=== PATIENT | female | born 1985 | race African-American/Black ===

== ENCOUNTER 2019-07-29 15:34 | Inpatient (IN) | payer BC ==
[~2019-07-29] VITALS: Ht 162.6 cm; Wt 78.0 kg
[2019-07-29] MEDS ORDERED: DEXT 5%/LR + PITOCIN 20UNITS/L 1,000 ML IV SCH ×2 (16:37→20:26)
[2019-07-29] MEDS ORDERED: METHYLERGONOVINE MALEATE 0.2 MG/ML IM PRN (16:45)
[2019-07-29] MEDS ORDERED: LIDOCAINE HCL 1% 20ML VIAL (Pyxis) INJ INFIL SCH (16:45)
[2019-07-29] MEDS ORDERED: BUTORPHANOL TARTRATE 2 MG/ML VIAL IV PRN (16:45)
[2019-07-29] MEDS ORDERED: CARBOPROST TROMETHAMINE 250 MCG/ML AMPUL IM PRN (16:45)
[2019-07-29] MEDS ORDERED: NALOXONE HCL 0.4 MG/ML 1ML VIAL IM PRN (16:45)
[2019-07-29] MEDS ORDERED: PENICILLIN G POTASSIUM 5 MMU in DEXT 5% WATER 100 ML IV SCH (17:00)
[2019-07-29] MEDS: LACTATED RINGERS 1,000 ML IV SCH ×2 (17:11→18:49)
[2019-07-29 17:20] LABS: CLARITY URINE CLEAR (CLEAR); COLOR URINE YELLOW (YELLOW); KETONES URINE TRACE (NEGATIVE); LEUKOCYTE ESTERASE URINE NEGATIVE (NEGATIVE); NITRITE URINE NEGATIVE (NEGATIVE); OCCULT BLOOD URINE NEGATIVE (NEGATIVE); PH URINE 6.5 (4.5-8.0); PROTEIN URINE NEGATIVE (NEGATIVE); SPECIFIC GRAVITY URINE 1.012 (1.005-1.030)
[2019-07-29 17:29] LABS: BASOPHILS % 0.8 % (0.0-2.0); HEMATOCRIT. 31.2 % (36.0-48.0); HEMOGLOBIN. 10.3 g/dL (12.0-16.0); LYMPHOCYTES % 37.7 % (20.0-50.0); MEAN CORPUSCULAR HEMOGLOBIN 26.6 pg (28.0-32.0); MEAN CORPUSCULAR VOLUME 80.9 fL (81.0-99.0); MEAN PLATELET VOLUME 9.1 fl (7.4-10.4); MONOCYTES % 9.3 % (2.0-8.0); NEUTROPHILS % 51.2 % (40.0-76.0); PLATELET 298 x1000/uL (130-400); RED BLOOD CELL COUNT 3.85 mill/uL (4.2-5.4); RED CELL DISTRIBUTION WIDTH 14.8 % (11.6-14.6)
[2019-07-29 17:33] LABS: *AMPHETAMINES SCREEN URINE NEGATIVE (NEGATIVE); *BARBITURATES SCREEN URINE NEGATIVE (NEGATIVE); *BENZODIAZEPINES SCREEN URINE NEGATIVE (NEGATIVE); *COCAINE SCREEN URINE NEGATIVE (NEGATIVE); METHADONE URINE SCREEN NEGATIVE (NEGATIVE)
[2019-07-29 17:34] LABS: CANNABINOID URINE SCREEN NEGATIVE (NEGATIVE); OPIATES URINE SCREEN NEGATIVE (NEGATIVE); PHENCYCLIDINE URINE SCREEN NEGATIVE (NEGATIVE)
[2019-07-29 17:34] LABS: INR 0.9; PARTIAL THROMBOPLASTIN TIME 25.8 sec (23.4-31.0); PROTHROMBIN TIME 9.3 sec (9.6-11.0)
[2019-07-29 18:03] LABS: HEPATITIS B SURFACE ANTIGEN NEGATIVE
[2019-07-29] MEDS ORDERED: MORPHINE SULFATE/PF 1MG/ML 10ML AMP ONE (18:06)
[2019-07-29] MEDS ORDERED: OXYTOCIN 10 UNITS/ML 1ML ONE ×3 (18:08→20:01)
[2019-07-29] MEDS ORDERED: SODIUM CHLORIDE 0.9% 10ML VIAL ONE ×3 (18:08→18:31)
[2019-07-29] MEDS ORDERED: CEFAZOLIN SODIUM 1000MG/VIAL ONE ×2 (18:08→18:32)
[2019-07-29] MEDS ORDERED: METOCLOPRAMIDE HCL 10MG/2ML VIAL ONE (18:12)
[2019-07-29] MEDS ORDERED: PHENYLEPHRINE HCL 10 MG/ML 1ML (IV VIAL) IV ONE (18:12)
[2019-07-29] MEDS ORDERED: ONDANSETRON HCL 4MG/2ML INJ ONE ×2 (18:12→18:33)
[2019-07-29] MEDS ORDERED: DEXAMETHASONE 4MG/ML 1ML VIAL ONE ×2 (18:12→18:32)
[2019-07-29] MEDS ORDERED: EPHEDRINE SULFATE 50MG/ML VIAL ONE (18:31)
[2019-07-29] MEDS ORDERED: HYDROCODONE/ACETAMINOPHEN 5/325MG TABLET PO PRN (20:30)
[2019-07-29] MEDS ORDERED: LANOLIN OINT 7GM TUBE TOP PRN (20:30)
[2019-07-29] MEDS ORDERED: DIPHENHYDRAMINE 25MG CAPSULE PO PRN (20:30)
[2019-07-29] MEDS ORDERED: IBUPROFEN 400MG TABLET PO PRN (20:30)
[2019-07-29] MEDS ORDERED: ONDANSETRON HCL 4MG/2ML INJ IV PRN (20:30)
[2019-07-29] MEDS ORDERED: RHO(D) IMMUNE GLOBULIN 300 MCG/SYR IM PRN (20:30)
[2019-07-29] MEDS ORDERED: DOCUSATE SODIUM 100MG CAPSULE PO SCH (21:00)
[2019-07-29] MEDS ORDERED: PENICILLIN G POTASSIUM 2.5 MMU in DEXTROSE 5% WATER 50 ML IV SCH (21:00)
[2019-07-29 23:25] VITALS: BP 117/76
[2019-07-30] VITALS: BP 114/69
[2019-07-30 00:30] VITALS: BP 122/69
[2019-07-30 04:15] VITALS: BP 121/77
[2019-07-30] MEDS ORDERED: METOCLOPRAMIDE HCL 10MG/2ML VIAL IV PRN (05:00)
[2019-07-30] MEDS ORDERED: KETOROLAC 30MG/ML VIAL IM SCH (05:00)
[2019-07-30] MEDS ORDERED: NALOXONE HCL 0.4 MG/ML 1ML VIAL IV PRN (05:00)
[2019-07-30] MEDS ORDERED: DIPHENHYDRAMINE 50MG/ML VIAL IV PRN (05:15)
[2019-07-30 06:24] LABS: HEMATOCRIT. 24.7 % (36.0-48.0); HEMOGLOBIN. 8.2 g/dL (12.0-16.0); MEAN CORPUSCULAR HEMOGLOBIN 26.7 pg (28.0-32.0); MEAN CORPUSCULAR VOLUME 80.9 fL (81.0-99.0); MEAN PLATELET VOLUME 8.9 fl (7.4-10.4); PLATELET 238 x1000/uL (130-400); RED BLOOD CELL COUNT 3.05 mill/uL (4.2-5.4); RED CELL DISTRIBUTION WIDTH 14.5 % (11.6-14.6)
[2019-07-30 08:00] VITALS: BP 103/59
[2019-07-30] MEDS: PRENATAL VIT/FE FUMARATE/FA TABLET PO SCH (08:14)
[2019-07-30] MEDS ORDERED: BUTORPHANOL TARTRATE 2 MG/ML VIAL IV PRN (08:30)
[2019-07-30] MEDS: LACTATED RINGERS 1,000 ML IV SCH (08:37)
[2019-07-30 13:46] LABS: PLATELET ESTIMATE NORMAL
[2019-07-30 14:00] VITALS: BP 119/71
[2019-07-30 20:00] VITALS: BP 100/70
[2019-07-30] MEDS: ACETAMINOPHEN WITH CODEINE 300/30MG TABLET PO PRN (23:32)
[2019-07-31] VITALS: BP 102/70
[2019-07-31 04:00] VITALS: BP 105/72
[2019-07-31 08:00] VITALS: BP 104/56
[2019-07-31] MEDS: PRENATAL VIT/FE FUMARATE/FA TABLET PO SCH (08:33)
[2019-07-31] MEDS: ACETAMINOPHEN WITH CODEINE 300/30MG TABLET PO PRN ×2 (08:34→12:49)
[2019-07-31] MEDS ORDERED: IBUP-2028 PO (13:01)
[2019-07-31 15:04] VITALS: BP 108/56
== END 2019-07-31 18:30 | disposition home or self-care (01) | DRG 785 ==
LOC: 8 EST LDRP 15:34 → OBSVTOIN 15:34 → 8EST 23:12
PROVIDERS: ADMIT Obstetrics & Gynecology; ATTEND Obstetrics & Gynecology
PROC: 10D00Z1 Extraction of Products of Conception, Low, Open Approach (ICD-10-PCS; principal; 2019-07-29)
PROC: 0UB70ZZ Excision of Bilateral Fallopian Tubes, Open Approach (ICD-10-PCS; 2019-07-29)
DX: O30.003 Twin pregnancy, unspecified number of placenta and unspecified number of amniotic sacs, third trimester (principal); O32.1XX1 Maternal care for breech presentation, fetus 1; O99.824 Streptococcus B carrier state complicating childbirth; O34.83 Maternal care for other abnormalities of pelvic organs, third trimester; N83.8 Other noninflammatory disorders of ovary, fallopian tube and broad ligament; D25.9 Leiomyoma of uterus, unspecified; O34.13 Maternal care for benign tumor of corpus uteri, third trimester; O99.02 Anemia complicating childbirth; O36.8130 Decreased fetal movements, third trimester, not applicable or unspecified; Z37.2 Twins, both liveborn; Z3A.38 38 weeks gestation of pregnancy; Z88.2 Allergy status to sulfonamides
CPT/HCPCS: 36415; 76802; 76815; 80305; 81003; 85025; 86592; 86703; 86762; 86850; 86900; 87340; 88304; 88307; 99281; J0690; J1100; J1200; J1885; J2274; J2370; J2405; J2540; J2590; J2765; J3490; J7060; J7120